=== PATIENT | female | born 1945 | race Caucasian/White ===

== ENCOUNTER 2017-03-23 13:18 | Emergency (ER) | payer MEDICARE ==
[~2017-03-23] VITALS: Ht 157.5 cm; Wt 67.5 kg
--- OUTSIDE RECORDS SUMMARY | 2017-03-23 13:22 | XMS REPORT ---
Author William Sanchez Organization [employer] Address Unknown Phone Unavailable Care Team Providers Care System Auditor Name Role Phone William Snell CP Unavailable Allergies No Known Allergies Problems Problem Type Condition ICD-9 Code Onset Dates Condition Status Problem Mitral Valve Prolapse 424.0 Active Problem Angina Pectoris 413.9 Active Problem CAD 414.01 Active Medications Medication Code System Code Instructions Start Date End Date Status Dosage Nitrostat [facility] [place] [address]-10 0.4 MG Sublingual Jul 08, 2015 1 tablet under tongue for c/o chest pain and may repeat x3 and unresolved call 911 Results No Known Results Summary Purpose [employer]ClinicalWorks Submission
--- OUTSIDE RECORDS SUMMARY | 2017-03-23 13:22 | XMS REPORT ---
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 024771151989843 Problem Nonrheumatic mitral (valve) prolapse I34.1 Active 94700737 Assessment Atherosclerotic heart disease of [place] coronary artery without angina pectoris I25.10 11 Nov, 2016 Active [id number] ALLERGIES Substance Reaction Event Type Date Status Valium Unknown Drug Allergy Nov, Active Acetaminophen Unknown Drug Allergy Nov, Active CODEINE Unknown Non Drug Allergy Nov, Active DIMATAPP Unknown Non Drug Allergy Nov, Active LORTAB Unknown Non Drug Allergy Nov, Active SOCIAL HISTORY No smoking Hx information available PLAN OF CARE VITAL SIGNS Height 62 in 2016-11-16 Weight 147 lbs 2016-11-16 BMI 26.88 kg/m2 2016-11-16 Oximetry 94 % 2016-11-16 Heart Rate 111 /min 2016-11-16 Blood pressure systolic 126 mm Hg 2016-11-16 Blood pressure diastolic 78 mm Hg 2016-11-16 MEDICATIONS Medication Instructions Dosage Frequency Start Date End Date Duration Status Nitroglycerin 0.4 MG Sublingual prn 1 tablet under the tongue and allow to dissolve as needed Active Atenolol 25 MG Orally when patient feels like it 1 tablet Active RESULTS Name Result Date Reference Range AtriaECW PROCEDURES Procedure Date Ordered Related Diagnosis Body Site ELECTROCARDIOGRAM, COMPLETE Nov 16, 2016 Office Visit, Est Pt., Level 3 Nov 16, 2016 IMMUNIZATIONS No Known Immunizations
--- OUTSIDE RECORDS SUMMARY | 2017-03-23 13:22 | XMS REPORT | Continuity of Care Document ---
Author Author [facility] Organization [facility] Address Unknown Phone Unavailable Allergies Active Description Code Type Severity Reaction Onset Reported/Identified Relationship to Patient Clinical Status Yes acetaminophen acetaminophen Drug Allergy Unknown N/A 04/16/2010 Yes codeine codeine Drug Allergy Unknown "STOPS EVERYTHING" 04/16/2010 Yes hydrocodone bit hydrocodone bit Drug Allergy Unknown N/A 04/16/2010 Medications Problems Procedures Results Test Result Range CBC W/DIFF - 07/09/14 09:31 EOSINOPHIL # 0.6 k/cumm 0.1-0.5 EOSINOPHIL % 5 % 2-4 GRANULOCYTE # 9.2 k/cumm 2.0-9.0 GRANULOCYTE % 74 % 50-75 LYMPHOCYTE # 1.7 k/cumm 1.0-4.0 LYMPHOCYTE % 13 % 20-30 MEAN CELL HGB 31.8 pg 27.0-33.0 MEAN CELL HGB CONCENTRATION 33.6 g/dL 32.0-37.0 MEAN CELL VOLUME 94.5 fl 80.0-100.0 MONOCYTE # 0.9 k/cumm 0.1-1.0 MONOCYTE % 8 % 4-6 RED BLOOD CELL 4.56 m/cumm 4.00-6.00 RED CELL DISTRIBUTION WIDTH 12.6 % 11.0- 15.6 WHITE BLOOD CELL 12.4 k/cumm 5.0-10.0 HEMOGLOBIN 14.5 gm/dL 12.0-16.0 HEMATOCRIT 43.1 % 37.0-47.0 PLATELET COUNT 311 k/cumm 150-400 HEPATIC FUNCTION PANEL - 07/09/14 09:31 BILI UNCONJUGATED 0.4 mg/dL 0.0-0.7 AST/SGOT 13 Units/L 10-37 ALT/SGPT 32 Units/L < 66 TOTAL PROTEIN 7.0 gm/dL 6.4-8.2 ALBUMIN 3.8 gm/dL 3.4-5.0 BILI TOTAL 0.5 mg/dL 0.0-1.0 ALKALINE PHOSPHATASE TOTAL 77 IU/L 45- 117 BILI CONJUGATED 0.1 mg/dL 0.0-0.3 MAGNESIUM - 07/09/14 09:31 MAGNESIUM 2.0 mg/dL 1.8-2.4 LIPASE - 07/09/14 09:31 LIPASE 173 Units/L 73-393 THYROID STIM HORMONE (TSH) - 07/09/14 09:31 THYROID STIM HORMONE (TSH) 2.79 uIU/mL 0.34-4.82 CHEM/HEM PROFILE-BEDSIDE - 07/09/14 09:57 POTASSIUM 3.7 mmol/L 3.5-5.3 METHOD Bedside ANION GAP 19 mmol/L 10-20 METHOD Bedside GLUCOSE 153 mg/dL 70-99 BLOOD UREA NITROGEN 15 mg/dL 7-20 CREATININE 1.0 mg/dL 0.6-1.0 HEMOGLOBIN 14.3 gm/dL 12.0-16.0 HEMATOCRIT 42.0 % 37.0-47.0 SODIUM 142 mmol/L 135-148 CHLORIDE 104 mmol/L 98-110 CARBON DIOXIDE 23 mmol/L 21-32 CALCIUM IONIZED 4.5 mg/dL 4.5-5.3 TROPONIN I BEDSIDE - 07/09/14 09:59 METHOD Bedside TROPONIN I < 0.04 ng/mL < 0.11 URINALYSIS, ROUTINE - 07/09/14 13:40 UA LEUKOCYTE ESTERASE DIPSTICK NEGATIVE NEGATIVE UA NITRITE DIPSTICK NEGATIVE NEGATIVE UA PROTEIN DIPSTICK NEGATIVE NEGATIVE UA GLUCOSE DIPSTICK NEGATIVE NEGATIVE UA KETONE DIPSTICK NEGATIVE NEGATIVE UA UROBILINOGEN DIPSTICK NORMAL NORMAL UA BILIRUBIN DIPSTICK NEGATIVE NEGATIVE UA BLOOD DIPSTICK NEGATIVE NEGATIVE UA COMMENT UA SPECIFIC GRAVITY 1.005 1.015-1.025 UR PH 7.0 5.0-7.0 CBC W/DIFF - 11/24/14 17:20 EOSINOPHIL # 0.5 k/cumm 0.1-0.5 EOSINOPHIL % 4 % 2-4 GRANULOCYTE # 8.9 k/cumm 2.0-9.0 GRANULOCYTE % 71 % 50-75 LYMPHOCYTE # 2.1 k/cumm 1.0-4.0 LYMPHOCYTE % 16 % 20-30 MEAN CELL HGB 31.2 pg 27.0-33.0 MEAN CELL HGB CONCENTRATION 33.5 g/dL 32.0-37.0 MEAN CELL VOLUME 93.3 fl 80.0-100.0 MONOCYTE # 1.1 k/cumm 0.1-1.0 MONOCYTE % 9 % 4-6 RED BLOOD CELL 4.61 m/cumm 4.00-6.00 RED CELL DISTRIBUTION WIDTH 12.2 % 11.0- 15.6 WHITE BLOOD CELL 12.6 k/cumm 5.0-10.0 HEMOGLOBIN 14.4 gm/dL 12.0-16.0 HEMATOCRIT 43.0 % 37.0-47.0 PLATELET COUNT 372 k/cumm 150-400 CHEM/HEM PROFILE-BEDSIDE - 11/24/14 17:29 POTASSIUM 3.4 mmol/L 3.5-5.3 METHOD Bedside ANION GAP 21 mmol/L 10-20 METHOD Bedside GLUCOSE 150 mg/dL 70-99 BLOOD UREA NITROGEN 13 mg/dL 7-20 CREATININE 1.0 mg/dL 0.6-1.0 HEMOGLOBIN 14.6 gm/dL 12.0-16.0 HEMATOCRIT 43.0 % 37.0-47.0 SODIUM 141 mmol/L 135-148 CHLORIDE 103 mmol/L 98-110 CARBON DIOXIDE 22 mmol/L 21-32 CALCIUM IONIZED 4.6 mg/dL 4.5-5.3 Encounters ACCT No. Visit Date/Time Discharge Status Pt. Type Provider Facility Loc./Unit Complaint [id number] 11/24/2014 16:51:00 2014 21:50:[id number] 07/[facility]2014 08:56:00 2013 17:17:00 DIS Emergency Marva TENA, Aubrie Lee [facility]
--- OUTSIDE RECORDS SUMMARY | 2017-03-23 13:22 | XMS REPORT ---
Author William Sanchez [facility] [employer] Address Unknown Phone Unavailable Care Team Providers Care Credit Authorizer Name Role Phone William Snell CP Unavailable Allergies, Adverse Reactions, Alerts Substance Reaction Event Type Valium Info Not Available Drug Allergy Acetaminophen Info Not Available Drug Allergy CODEINE Info Not Available Non Drug Allergy DIMATAPP Info Not Available Non Drug Allergy LORTAB Info Not Available Non Drug Allergy Problems Problem Type Condition Code Onset Dates Condition Status Assessment Angina Pectoris 413.9 Active Problem Nonrheumatic mitral (valve) prolapse I34.1 Active Problem CAD 414.01 Active 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 Assessment Nonrheumatic mitral (valve) prolapse I34.1 Active Assessment Atherosclerotic heart disease of [place] coronary artery without angina pectoris I25.10 Active Problem Mitral Valve Prolapse 424.0 Active Problem Angina Pectoris 413.9 Active Medications Medication Code System Code Instructions Start Date End Date Status Dosage Atenolol [facility] [address]-69 25 MG Orally PRN 1 tablet Nitroglycerin [facility] [address]-07 0.4 MG Sublingual every 0 hrs 1 tablet under the tongue and allow to dissolve as needed multivitamin NDC 0 po prn 1 tab Procedures Procedure Coding System Code Date Office Visit, Est Pt., Level 3 CPT-4 21199 Sep 18, 2015 ELECTROCARDIOGRAM, COMPLETE CPT-4 73116 Sep 18, 2015 Vital Signs Date/Time: Sep 18, 2015 BMI 26.92 Index Weight 147.2 lbs Height 62 in Cardiac Monitoring Heart Rate 108 /min Oximetry 95% % Blood Pressure Diastolic 66 mm Hg Blood Pressure Systolic 108 mm Hg Results Name Result Date Reference Range Unit Abnormality Flag Atria ECG Summary Purpose eClinicalWorks Submission
--- OUTSIDE RECORDS SUMMARY | 2017-03-23 13:22 | XMS REPORT ---
Author William Sanchez Organization [employer] Address Unknown Phone Unavailable Care Team Providers Care Marketing Information Manager Name Role Phone William Snell CP Unavailable Allergies No Known Allergies Problems Problem Type Condition ICD-9 Code Onset Dates Condition Status Problem Mitral Valve Prolapse 424.0 Active Problem Angina Pectoris 413.9 Active Problem CAD 414.01 Active Medications No Known Medications Results No Known Results Summary Purpose [employer]ClinicalWorks Submission
[2017-03-23 13:32] VITALS: TEMP 97.9; Ht 157.5 cm; Wt 67.5 kg
[2017-03-23] MEDS ORDERED: ATEN25TA PO (13:48)
[2017-03-23] MEDS ORDERED: NITR0.4T39 SL (13:48)
--- NOTE | 2017-03-23 14:00 | ERPDOC ---
Departure Disposition Decision Date: March 23, 2017 Disposition Decision Time: 13:59 Disposition: 01 DISCHARGED HOME, SELF-CARE Impression Impression Impression: Primary Impression: Scalp laceration Encounter type: initial encounter Qualified Codes: S01.01XA - Laceration without foreign body of scalp, initial encounter Severity: Moderate Condition: Stable Seen By: Mid-level only Referrals: FELIX TONEY DO (Family) Patient Instructions: Laceration (ED) Problems/Meds/Labs Reviewed?: Yes Medications reviewed and manag: Yes Additional Instructions: Have the prabhjot taken out in 7 days with your primary care provider. Wash the area daily with soap and water. May use Advil as needed for pain. Follow up care ordered?: Yes Mental Status: Alert HPI - Skin General General Chief Complaint: Laceration Stated Complaint: LAC TO HEAD Time Seen by Provider: 13:42 Source: patient Exam Limitations: no limitations HPI - Skin General Initial Comments She has an old house that has low cabinets. She was walking today and hit the top of her head on the cabinet. She has a laceration on the top of her head. Did not have any LOC. She denies any nausea/vomiting. Has not been on any blood thinners. Unknown last Tetanus vaccination but she galindo decline this today. Occurred At: home Onset: Rapid Duration: 1/2 hour Severity: mild Location: scalp Possible Cause: other (Hit head on corner of cabinet) Associated Symptoms: denies symptoms Hx of Similar Symptoms: No Allergies: Coded Allergies: diazepam (Verified Allergy, Severe, ANAPHYLACTIC SHOCK, 03/23/17) Uncoded Allergies: "ALL PAIN MEDICATIONS" (Allergy, Severe, ANAPHYLACTIC SHOCK, 03/23/17) Review of Systems Constitutional Constitutional: DENIES: chills, dizziness, fatigue, fever, weakness Eyes Vision: DENIES: blurring, double vision ENMT Ears: DENIES: drainage, pain Sinuses: DENIES: congestion, rhinorrhea Mouth/Throat: DENIES: painful swallowing, scratchy throat, sore throat Neurological General: headache (at site of the laceration), DENIES: numbness, tingling, weakness Physical Exam General General Nourishment: well nourished, well developed, appears stated age, no acute distress, adult General Body Habitus: well groomed Vitals and Pain First Documented Vital Signs Date Time Temp Pulse Resp B/P Pulse Ox O2 Delivery O2 Flow Rate FiO2 03/23/17 13:32 97.9 80 16 139/86 95 Room Air Weight: Kilograms: 67.500 Height (feet): 5 Height (inches): 2.00 Triage Pain Scale: RN VS reviewed by Provider: Yes Normal Exams: Neurologic: Patient is alert, and oriented Psychiatric: Patient exhibits, appropriate attention, emotion and affect Eyes (brief) Eyes Brief: found: EOMI, PERRL ENMT (brief) ENMT Brief: FOUND: TM clear, TM good light reflex, ear canals clear, mucosa moist, normal dentition, normal tonsils, NOT FOUND: lesions, nasal erythema, nasal exudate, nasal swelling, petechiae, pharnyx erythema, tonsillar deviation Integumentary (brief) Integumentary Brief: FOUND: other (Laceration on the top of her head that is 1.5cm in length. No active bleeding noted), pink, warm Differential Diagnoses Considering: Laceration, Other (Head injury, concussion) Procedures Procedures Performed Procedures Performed: Laceration Repair Laceration/Wound Repair Wound/Laceration Repair : Wound Location: head (scalp) Wound Length (cm): 1.5 Depth, Shape: superficial, linear Explored: clean Irrigated: saline Prep: chlorasept Repaired With: Prabhjot Number of Sutures: 2 Progress Progress Progress [place] were placed on the top of the scalp. Will have them removed in about a week. May wash daily with soap and water. Follow up with PCP if any further concerns. LEOPOLDO WISEMAN APRN March 23, 2017 14:00
--- OUTSIDE RECORDS SUMMARY | 2017-03-23 14:04 | XMS REPORT | Continuity of Care Document ---
Author Author [facility] Organization [facility] Address Unknown Phone Unavailable Allergies Active Description [...] Status Pt. Type Provider Facility Loc./Unit Complaint [id number] 11/24/2014 16:51:00 2014 21:50:00 [id number] 07/09/2014 08:56:00 2013 17:17:00 DIS Emergency Marva TENA, Aubrie Lee [facility]
[2017-03-23 14:10] VITALS: BP 151/90; PULSE 91; RESP 20; O2SAT 95
== END 2017-03-23 14:10 | disposition home or self-care (01) ==
LOC: ED 13:18
DX: S01.01XA Laceration without foreign body of scalp, initial encounter (principal); W22.09XA Striking against other stationary object, initial encounter; Y93.01 Activity, walking, marching and hiking; Y92.009 Unspecified place in unspecified non-institutional (private) residence as the place of occurrence of the external cause; Y99.8 Other external cause status